=== PATIENT | male | born 1945 | race Caucasian/White ===

== ENCOUNTER 2025-05-28 15:26 | Emergency (ER) | payer OTHER, SELFPAY ==
[2025-05-28 15:32] VITALS: BP 147/87; PULSE 83; RESP 14; TEMP 36.1; O2SAT 96; BMI 29.4
--- NOTE | 2025-05-28 15:35 | DI.RAD.S_ITS ---
PROCEDURE: XR HIP W PEL IF DONE RT 2V INDICATIONS: hip injury with fall x3 days TECHNIQUE: AP pelvis with lateral view(s) of the right hip(s). COMPARISON: None. FINDINGS: Bones: No fractures or dislocations. Pelvic ring appears intact. No suspicious bony lesions. Soft tissues: The visualized bowel gas pattern is normal. No suspicious soft tissue calcifications. Oral contrast within the distal large bowel and rectum. IMPRESSION: Suboptimal evaluation due to contrast within the rectum and distal bowel. No displaced fracture. CT to follow. Dictated by: Alvaro Sanford M.D. on 05/28/2025 at 16:10 Approved by: Alvaro Sanford M.D. on 05/28/2025 at 16:11
--- NOTE | 2025-05-28 15:52 | ED_ITS ---
HPI - Fall <Gloria Paniagua PA-C - Last Filed: 05/28/25 18:23> General Chief Complaint: Fall Stated Complaint: fell sailing 4days hip pains Time Seen by Provider: 05/28/25 15:28 Source: patient Mode of arrival: Ambulatory History of Present Illness HPI Narrative: Mr. West is a very pleasant 80-year-old male with a past medical history of CAD with stent, hypertension, hyperlipidemia, BPH who presents to the emergency department for right hip pain after a fall 4 days ago. Patient states that he was on his boat a few days ago and slipped on a wet rag causing him to fall backwards and on his right side. He did hit his face/head and sustained a small superficial laceration on the forehead which he bandaged. He felt fine after the fall and got up and continued walking with minimal pain of the right hip however as the days progressed he has had worsening and worsening pain of the right hip/glute region. The night after the fall his took a picture of his buttocks revealing a large bruise however patient states that he was not in any significant pain however yesterday the right buttocks began swelling even more and the pain started and it has gotten worse since then. Today he actually slipped again while on his boat landing straight on his buttocks which he believes exacerbated the pain. He adamantly refuses any head pain, loss of consciousness, visual disturbance, dizziness, confusion or concerned about his head and would not like a CT scan of his head. No neck pain. No chest pain or abdominal pain. No nausea vomiting diarrhea, constipation, hematuria. He is not on any blood thinners. His contributes to the history. Related Data Previous Rx's ?Medication ?Instructions ?Recorded hydrocodone 5 mg-acetaminophen 325 1 tab PO Q4-6H PRN pain #12 tabs 05/28/25 mg tablet Allergies Allergy/AdvReac Type Severity Reaction Status Date / Time No Known Drug Allergies Allergy Verified 05/28/25 15:32 Review of Systems <Gloria Paniagua PA-C - Last Filed: 05/28/25 18:23> Review of Systems ROS Unobtainable: All systems reviewed & are unremarkable except as noted in HPI and below Patient History <Gloria Paniagua PA-C - Last Filed: 05/28/25 18:23> Social History Smoking Status: Unknown if ever smoked Smoking Status: Unknown if ever smoked Exam <Gloria Paniagua PA-C - Last Filed: 05/28/25 18:23> Narrative Exam Narrative: GENERAL: 80 year old patient appears stated age. Well-developed patient, in no acute distress. HEAD: Atraumatic. Normocephalic. Healed laceration above right eyebrow. No scalp tenderness. EYES: PERRL. Extraocular motions intact. No scleral icterus. No injection or drainage. ENT: Normal ear canals and TMs bilaterally. Nose without bleeding, purulent drainage. Throat without erythema, tonsillar hypertrophy or exudate. Airway p atent. NECK: Trachea midline. Cervical ROM intact. No midline cervical tenderness. CARDIOVASCULAR: Regular rate and rhythm. RESPIRATORY: ?Nonlabored respirations. ?Speaking in clear, full sentences. ?Clear to auscultation. Breath sounds equal bilaterally. No wheezes, rales, or rhonchi. ? GASTROINTESTINAL: Abdomen soft, non-tender, nondistended. No abdominal wall bruising. EXTREMITIES: Strong DP pulses bilaterally. On the right buttock/gluteal region patient has ecchymosis covering the entire buttocks extending into the lower lumbar spine with large swollen hematoma on the top portion of the glute. There is no midline spinal tenderness. BACK: Ecchymoses extending from the right glute onto the lumbar spine. There was no midline spinal tenderness. NEURO: AOx3. ?Clear speech. ?Moves all 4 extremities appropriately. Ambulates independently. SKIN: Right glute ecchymoses described above. Otherwise skin is warm and dry. Initial Vital Signs Initial Vital Signs: Vital Signs Temperature 97.0 F L 05/28/25 15:32 Pulse Rate 83 05/28/25 15:32 Respiratory Rate 14 05/28/25 15:32 Blood Pressure 147/87 H 05/28/25 15:32 Pulse Oximetry 96 05/28/25 15:32 Oxygen Delivery Method Room Air 05/28/25 15:32 <Eduin Velarde DO - Last Filed: 05/29/25 07:03> Initial Vital Signs Initial Vital Signs: Vital Signs Temperature 97.0 F L 05/28/25 15:32 Pulse Rate 83 05/28/25 15:32 Respiratory Rate 14 05/28/25 15:32 Blood Pressure 147/87 H 05/28/25 15:32 Pulse Oximetry 96 05/28/25 15:32 Oxygen Delivery Method Room Air 05/28/25 15:32 Course <Gloria Paniagua PA-C - Last Filed: 05/28/25 18:23> Orders Ordered: Discontinued Medications Hydrocodone Bitart/Acetaminophen (Hydrocodone/Acet 5/325 Tablet) 1 tab PO NOW ONE Stop: 05/28/25 16:04 Last Admin: 05/28/25 16:29 Dose: 1 tab Documented By: BT Vital Signs Vital signs: Vital Signs - 8 hr 05/28/25 15:32 05/28/25 17:27 Temperature 97.0 F L Pulse Rate 83 80 Respiratory Rate 14 18 Blood Pressure 147/87 H 130/78 Pulse Oximetry 96 97 Oxygen Delivery Method Room Air Room Air <Eduin Velarde DO - Last Filed: 05/29/25 07:03> Orders Ordered: Discontinued Medications Hydrocodone Bitart/Acetaminophen (Hydrocodone/Acet 5/325 Tablet) 1 tab PO NOW ONE Stop: 05/28/25 16:04 Last Admin: 05/28/25 16:29 Dose: 1 tab Documented By: BT Vital Signs Vital signs: Vital Signs - 8 hr 05/28/25 15:32 05/28/25 17:27 Temperature 97.0 F L Pulse Rate 83 80 Respiratory Rate 14 18 Blood Pressure 147/87 H 130/78 Pulse Oximetry 96 97 Oxygen Delivery Method Room Air Room Air MDM - Fall <Gloria Paniagua PA-C - Last Filed: 05/28/25 18:23> Medical Records Attestation: I reviewed the patient's medical records. Medical records narrative: Reviewed patient's med list on his cell phone. Imaging Data CT Pelvis WO contrast: Radiologist's Impression: PROCEDURE: CT PEL WO CON INDICATIONS: Fall; R hip / glute pain; huge hematoma TECHNIQUE: Noncontrast 3 mm axial sections acquired through the bony pelvis, with coronal and sagittal reformatting. COMPARISON: [facility], CR, XR HIP W PEL RT 2V, 05/28/2025, 15:30. FINDINGS: Image quality: Excellent. Bones: Pelvic ring is intact. No acute pelvic or hip fracture. No hip dislocation. No evidence of sacral insufficiency fracture . Moderate bilateral hip joint osteoarthritic changes are seen slightly worse on the right side. No evidence of avascular necrosis of femoral head. No suspicious intraosseous lesions. Degenerative disc disease in visualized lower lumbar spine is seen. Chronic appearing deformity involving lower coccyx is seen. Soft tissues: There is no pelvic free fluid or free air. No abnormal bowel wall thickening. Bladder wall thickness is normal. No abscess collection. Left inguinal hernia containing fat only. Asymmetrically enlarged right gluteus carroll muscle with heterogeneous hyperdensity suggestive of intramuscular hematoma. No drainable fluid collection. No abnormal soft tissue calcifications. IMPRESSION: 1. No acute pelvic or hip fracture. No hip dislocation. Bilateral hip joint osteoarthritis. No evidence of avascular necrosis of femoral head. 2. Asymmetrically enlarged right gluteus carroll muscle with suggestion of moderate intramuscular hematoma. No solid mass or drainable fluid collection is seen. No peritoneal free fluid or free air. 3. Degenerative disc disease in visualized lower lumbar spine. Old deformity involving lower coccyx. No acute sacral fracture. Dictated by: Toby Diaz M.D. on 05/28/2025 at 16:39 Approved by: Toby Diaz M.D. on 05/28/2025 at 16:43 CT Lumbar: Radiologist's Impression: PROCEDURE: CT LUMBAR SPINE WO CON INDICATIONS: Fall; R hip / glute pain; huge hematoma TECHNIQUE: Noncontrast 3 mm thick sections acquired from the T12 level to the sacrum. Sagittal and coronal reformats were constructed. For radiation dose reduction, the following was used: automated exposure control. COMPARISON: None. FINDINGS: Image quality: Excellent. Bones: Grade 1 anterolisthesis of L4 on L5 due to facet arthrosis. No acute vertebral body compression fractures. No suspicious lytic or blastic bony lesions. No pars defects. There is mild to moderate, multilevel degenerative disc disease most prominent at L4-5 and L5-S1. Mild spinal canal narrowing at L3-4, L4-5. Facet arthrosis of L3 through S1. Moderate left neural foraminal narrowing at L4-5. Soft tissues: No retroperitoneal masses or hematomas. Visualized aorta is normal in caliber. IMPRESSION: No acute, displaced fracture or traumatic subluxation. Mild to moderate, multilevel degenerative disc disease and lower lumbar facet arthrosis. This results in mild spinal canal narrowing at L3-4 and L4-5, and moderate left neural foraminal narrowing at L4-5. Dictated by: Alvaro Sanford M.D. on 05/28/2025 at 16:35 Approved by: Alvaro Sanford M.D. on 05/28/2025 at 16:37 [facility] Narrative Medical decision making narrative: 80-year-old male with a past medical history of CAD with stent, hypertension, hyperlipidemia, BPH who presents to the emergency department for right hip pain after a fall 4 days ago. Differential diagnosis includes but is not limited to hematoma, sacral fracture, lumbar fracture, hip fracture, contusion, etc. On exam the patient is in no acute distress, nontoxic-appearing, all vital signs within normal limits. His entire right glute is bruise and he has a large hematoma at the top of the glute with subsequent tenderness. He is able to ambulate and perform [id number] appropriately and he has strong pulses distally. No abdominal bruising, no rib pain, no upper extremity pain, no head pain. Declines head CT. We will obtain CT lumbar spine and pelvis to further evaluate for possible underlying fracture. Ice and [place] for pain control. Patient's pain improved with ED treatment. Pelvic CT reveals no acute pelvic or hip fracture. No dislocation. There is asymmetrically enlarged right gluteus carroll muscle with suggestion of moderate intramuscular hematoma. No solid mass or drainable fluid collection is seen. No peritoneal free fluid or free air. No acute sacral fracture. She does have various degenerative disease on the CT lumbar spine and CT pelvis. All imaging was printed and discussed with the patient and his . At this time recommended supportive care for hematoma. He was prescribed a short course of pain medication as well. Advised prompt follow up with the PCP or orthopedics for further management and I did discuss strict ED return precautions as well. He verbalized understanding of all information, narcotic risks discussed, he is ambulatory and stable for discharge home. <Eduin Velarde, DO - Last Filed: 05/29/25 07:03> [facility] Narrative Medical decision making narrative: 80-year-old male with a past medical history of CAD with stent, hypertension, hyperlipidemia, BPH who presents to the emergency department for right hip pain after a fall 4 days ago. Differential diagnosis includes but is not limited to hematoma, sacral fracture, lumbar fracture, hip fracture, contusion, etc. On exam the patient is in no acute distress, nontoxic-appearing, all vital signs within normal limits. His entire right glute is bruise and he has a large hematoma at the top of the glute with subsequent tenderness. He is able to amb ulate and perform [id number] appropriately and he has strong pulses distally. No abdominal bruising, no rib pain, no upper extremity pain, no head pain. Declines head CT. We will obtain CT lumbar spine and pelvis to further evaluate for possible underlying fracture. Ice and [place] for pain control. Patient's pain improved with ED treatment. Pelvic CT reveals no acute pelvic or hip fracture. No dislocation. There is asymmetrically enlarged right gluteus carroll muscle with suggestion of moderate intramuscular hematoma. No solid mass or drainable fluid collection is seen. No peritoneal free fluid or free air. No acute sacral fracture. She does have various degenerative disease on the CT lumbar spine and CT pelvis. All imaging was printed and discussed with the patient and his . At this time recommended supportive care for hematoma. He was prescribed a short course of pain medication as well. Advised prompt follow up with the PCP or orthopedics for further management and I did discuss strict ED return precautions as well. He verbalized understanding of all information, narcotic risks discussed, he is ambulatory and stable for discharge home. Co-sign statement: I was available for consultation during this patient's emergency department visit. This chart is being signed by myself for administrative purposes only. I do not have direct contact with this patient during this visit. They were seen independently by the APC. Discharge Plan Departure Patient Disposition: Home Clinical Impression: Hematoma Fall from slipping Qualifiers: Encounter type: initial encounter Qualified Code(s): W01.0XXA - Fall on same level from slipping, tripping and stumbling without subsequent striking against object, initial encounter Instructions: DI for Hematoma (Bruise) Activity Restrictions/Additional Instructions: Dear Mr. West, Thank you for coming to the emergency department. Today you were evaluated for right glute pain after a fall. CT scan did not reveal any broken bones but it did reveal a moderate intramuscular hematoma in the right gluteus carroll muscle. This is a large area of blood collection/bruise. You need to treat this by rest, ice, compression, and following up with the primary care doctor or even orthopedics for further management. Please use RICE therapy for your pain in addition to ibuprofen/acetaminophen. Rest the painful area. Ice the area of pain/swelling for at least 15 minutes, 4x a day. Compress the area of swelling using a brace, wrap, or splint if applied. Elevate the painful or swollen extremity by supporting it above the level of the heart with pillows when sitting or laying. Please follow up with Orthopedics or your primary care doctor as soon as possible for further evaluation. If you develop severe or worsening pain, decreased sensation, continued swelling or other concerns please return to the ER. You have been prescribed a short course of narcotic medications. These are potentially dangerous and addictive medications that should be used carefully. While on these medications you cannot drive or operate heavy machinery. Additionally, you cannot sign legal documents or perform any duties such as this. 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 Please understand that we cannot provide further refills of narcotics or controlled substances through the ED and your pain management will need to be through your Primary Care Provider Please follow up with your primary care doctor within the next 2-3 days for ER follow-up. (If you do not have a PCP you can call [phone]. ?to schedule an appointment with an [facility] Primary Care Provider) IF YOU DEVELOP ANY NEW OR WORSENING SYMPTOMS, RETURN TO THE ER! Please read the attached instructions, they highlight more specific treatments and interventions for you at home. Thank you for letting me participate in your care, Gloria Paniagua PA-C Prescriptions: New hydrocodone-acetaminophen 5-325 mg tablet 1 tab PO Q4-6H PRN (Reason: pain) Qty: 12 0RF Referrals: Pricilla Bowling DO [Physician, Orthopedic Surgery] Referral Note: hematoma Stand Alone Forms: Patient Portal/API
--- NOTE | 2025-05-28 16:03 | DI.CT.S_ITS ---
PROCEDURE: CT PEL WO CON INDICATIONS: Fall; R hip / glute pain; huge hematoma TECHNIQUE: Noncontrast 3 mm axial sections acquired through the bony pelvis, with coronal and sagittal reformatting. COMPARISON: [facility], CR, XR HIP W PEL RT 2V, 05/28/2025, 15:30. FINDINGS: Image quality: Excellent. Bones: Pelvic ring is intact. No acute pelvic or hip fracture. No hip dislocation. No evidence of sacral insufficiency fracture . Moderate bilateral hip joint osteoarthritic changes are seen slightly worse on the right side. No evidence of avascular necrosis of femoral head. No suspicious intraosseous lesions. Degenerative disc disease in visualized lower lumbar spine is seen. Chronic appearing deformity involving lower coccyx is seen. Soft tissues: There is no pelvic free fluid or free air. No abnormal bowel wall thickening. Bladder wall thickness is normal. No abscess collection. Left inguinal hernia containing fat only. Asymmetrically enlarged right gluteus carroll muscle with heterogeneous hyperdensity suggestive of intramuscular hematoma. No drainable fluid collection. No abnormal soft tissue calcifications. IMPRESSION: 1. No acute pelvic or hip fracture. No hip dislocation. Bilateral hip joint osteoarthritis. No evidence of avascular necrosis of femoral head. 2. Asymmetrically enlarged right gluteus carroll muscle with suggestion of moderate intramuscular hematoma. No solid mass or drainable fluid collection is seen. No peritoneal free fluid or free air. 3. Degenerative disc disease in visualized lower lumbar spine. Old deformity involving lower coccyx. No acute sacral fracture. Dictated by: Toby Diaz M.D. on 05/28/2025 at 16:39 Approved by: Toby Diaz M.D. on 05/28/2025 at 16:43
--- NOTE | 2025-05-28 16:03 | DI.CT.S_ITS ---
PROCEDURE: CT LUMBAR SPINE WO CON INDICATIONS: Fall; R hip / glute pain; huge hematoma TECHNIQUE: Noncontrast 3 mm thick sections acquired from the T12 level to the sacrum. Sagittal and coronal reformats were constructed. For radiation dose reduction, the following was used: automated exposure control. COMPARISON: None. FINDINGS: Image quality: Excellent. Bones: Grade 1 anterolisthesis of L4 on L5 due to facet arthrosis. No acute vertebral body compression fractures. No suspicious lytic or blastic bony lesions. No pars defects. There is mild to moderate, multilevel degenerative disc disease most prominent at L4-5 and L5-S1. Mild spinal canal narrowing at L3-4, L4-5. Facet arthrosis of L3 through S1. Moderate left neural foraminal narrowing at L4-5. Soft tissues: No retroperitoneal masses or hematomas. Visualized aorta is normal in caliber. IMPRESSION: No acute, displaced fracture or traumatic subluxation. Mild to moderate, multilevel degenerative disc disease and lower lumbar facet arthrosis. This results in mild spinal canal narrowing at L3-4 and L4-5, and moderate left neural foraminal narrowing at L4-5. Dictated by: Alvaro Sanford M.D. on 05/28/2025 at 16:35 Approved by: Alvaro Sanford M.D. on 05/28/2025 at 16:37
--- NOTE | 2025-05-28 16:19 | PC.NURSE ---
The hematoma area is is lower right back down the right buttock, about 21cm long
--- NOTE | 2025-05-28 16:23 | PC.NURSE ---
denies nausea or vomiting.
[2025-05-28] MEDS: HYDROCODONE/ACET 5/325 TABLET 1 TAB PO (16:29)
[2025-05-28 17:27] VITALS: BP 130/78; PULSE 80; RESP 18; O2SAT 97
== END 2025-05-28 17:30 | disposition home or self-care (01) ==
PROVIDERS: Emergency Provider Physician Assistant
DX: S70.01XA Contusion of right hip, initial encounter (principal); W01.0XXA Fall on same level from slipping, tripping and stumbling without subsequent striking against object, initial encounter
CPT/HCPCS: 72131; 72192; 73502; 99283; 99284